=== PATIENT | female | born 1965 | race Caucasian/White ===

== ENCOUNTER 2016-10-10 21:41 | Emergency (ER) | payer BC ==
[~2016-10-10] VITALS: Ht 170.2 cm; Wt 63.5 kg
--- NOTE | ~2016-10-10 | CR127 ---
[facility]. [facility] A Service of [facility] & [facility] RADIOLOGY TEXT RESULTS PATIENT: LINDA WILKINSON LOCATION: SED : 69 UNIT #: [id number] AGE: [address]: ISIAH GARCIA SEX: F ORDER DR: [id number] [place] [id number] E MR#: [id number] Acc #: [id number] NAME: LINDA WILKINSON : 1965 SEX: F STUDY DATE/TIME: 10/10/2016 22:36 UNIT: SED ROOM: STUDY DESCRIPTION: CR Foot Complete Min 3 View Rt Attending Physician: Isiah Garcia Ordering Physician: Isiah Garcia Primary Care Physician: Primary Care Physician No MEDICAL IMAGING REPORT This report is preliminary unless electronic signature is present. EXAM Right foot 3 views 10/10/2016 HISTORY Right foot pain. Twisted foot while trimming bushes at 19:00 today. FINDINGS The tarsal, metatarsal, and phalangeal elements are all anatomically normal in position and alignment. There are no articular defects. No fractures or radiopaque foreign bodies in the soft tissues are apparent. IMPRESSION Normal foot. Dictated by... Modesto Paz M.D. THIS IS AN ELECTRONICALLY VERIFIED REPORT Modesto Paz M.D. at 10/11/2016 2:17 PM CESAR/tyson TD: 10/11/2016 11:04 JOB #: [id number] MEDICAL IMAGING REPORT Page 1 of 1
--- NOTE | ~2016-10-10 | CR20 ---
[facility]. [facility] A Service of [facility] & [facility] RADIOLOGY TEXT RESULTS PATIENT: LINDA WILKINSON LOCATION: SED : [birth year] UNIT #: [id number] AGE: [address]: ISIAH GARCIA SEX: F ORDER DR: [id number] [place] [id number] E MR#: [id number] Acc #: [id number] NAME: LINDA WILKINSON : 1965 SEX: F STUDY DATE/TIME: 10/10/2016 22:36 UNIT: SED ROOM: STUDY DESCRIPTION: CR Ankle Min 3 Views Lt Attending Physician: Isiah Garcia Ordering Physician: Isiah Garcia Primary Care Physician: Lani Primary Care Physician MEDICAL IMAGING REPORT This report is preliminary unless electronic signature is present. EXAM Left ankle 3 views 10/10/2016. HISTORY Left ankle pain and swelling. Twisted ankle while trimming bushes at 19:00 today. FINDINGS AP, lateral, and oblique projections of the ankle show satisfactory integrity of the joint mortise with a smooth articular surface. There is no identifiable fracture, dislocation, or radiopaque foreign body. IMPRESSION Normal ankle. Dictated by... Modesto Paz M.D. THIS IS AN ELECTRONICALLY VERIFIED REPORT Modesto Paz M.D. at 10/11/2016 2:17 PM KRT/gz TD: 10/11/2016 11:02 JOB #: [id number] MEDICAL IMAGING REPORT Page 1 of 1
--- NOTE | ~2016-10-10 | CR126 ---
[facility]. [facility] A Service of [facility] & [facility] RADIOLOGY TEXT RESULTS PATIENT: LINDA WILKINSON LOCATION: SED : [birth year] UNIT #: [id number] AGE: [address]: ISIAH GARCIA SEX: F ORDER DR: [id number] [address] [address] [id number] E MR#: [id number] Acc #: [id number] NAME: LINDA WILKINSON : 1965 SEX: F STUDY DATE/TIME: 10/10/2016 22:36 UNIT: SED ROOM: STUDY DESCRIPTION: CR Foot Complete Min 3 View Lt Attending Physician: Isiah Garcia Ordering Physician: Isiah Garcia Primary Care Physician: No Primary Care Physician MEDICAL IMAGING REPORT This report is preliminary unless electronic signature is present. EXAM Left foot, 3 views, 10/10/2016. HISTORY Left foot pain beginning at 1900 today. Twisted foot while trimming bushes. FINDINGS The tarsal, metatarsal, and phalangeal elements are all anatomically normal in position and alignment. There are no articular defects. No fractures or radiopaque foreign bodies in the soft tissues are apparent. IMPRESSION Normal foot. Dictated by... Modesto Paz M.D. THIS IS AN ELECTRONICALLY VERIFIED REPORT Modesto Paz M.D. at 10/11/2016 2:17 PM KRT/bd TD: 10/11/2016 10:59 JOB #: [id number] MEDICAL IMAGING REPORT Page 1 of 1
[2016-10-10] MEDS ORDERED: ALBUTEROL17 GM INH (21:53)
[2016-10-10] MEDS ORDERED: BIRTH CONTROL PILL PO (21:53)
== END 2016-10-10 23:23 | disposition home or self-care (01) ==
LOC: SED 21:41
DX: S93.402A Sprain of unspecified ligament of left ankle, initial encounter (principal); S96.912A Strain of unspecified muscle and tendon at ankle and foot level, left foot, initial encounter; S90.31XA Contusion of right foot, initial encounter; J45.909 Unspecified asthma, uncomplicated; W01.0XXA Fall on same level from slipping, tripping and stumbling without subsequent striking against object, initial encounter; Y92.009 Unspecified place in unspecified non-institutional (private) residence as the place of occurrence of the external cause
CPT/HCPCS: 29540; 73610; 73630; 99283